=== PATIENT | male | born 2000 | race Caucasian/White ===

== ENCOUNTER 2022-07-29 10:00 | Emergency (ER) | payer MEDICAID ==
[~2022-07-29] VITALS: Ht 177.8 cm; Wt 75.0 kg
[2022-07-29 10:15] VITALS: BP 119/95
[2022-07-29] MEDS ORDERED: PENICILLIN G BENZATHINE 2,400,000 UNITS/4ML SYR IM ONE (11:30)
[2022-07-29] MEDS ORDERED: FAMOTIDINE 20MG TABLET PO ONE (11:45)
[2022-07-29] MEDS ORDERED: PREDNISONE 20MG TABLET PO ONE (11:45)
[2022-07-29] MEDS ORDERED: DIPH25CA83 MT (12:02)
[2022-07-29] MEDS ORDERED: P20 MT (12:02)
== END 2022-07-29 13:01 | disposition home or self-care (01) ==
LOC: ER 10:28
DX: L42 Pityriasis rosea (principal); B20 Human immunodeficiency virus [HIV] disease
CPT/HCPCS: 86592; 99283; J7512; J0561